=== PATIENT | female | born 1995 | race Caucasian/White ===

== ENCOUNTER → 2018-05-08 | Outpatient (CLI) | payer OTHER ==
--- NOTE | 2018-05-08 09:40 | Diagnostic Imaging Report ---
PROCEDURE:ABDOMINAL ULTRASOUND COMPARISON:None. INDICATIONS:abdominal pain, N\T\V FINDINGS: Liver: 14.2 cm in length in the right midclavicular line. Normal hepatic parenchymal echogenicity. No focal mass. Main portal vein: 1 cm in caliber. Hepatopedal flow. Gallbladder: Unremarkable in sonographic appearance without shadowing calculus, wall thickening, or pericholecystic fluid. Common Bile Duct: 0.2 cm in caliber. No echogenic filling defect. Sonographic Aguilera's sign: Reported as negative. Right kidney: 9.8 cm in length. No solid or cystic mass, echogenic calculi, or hydronephrosis. Normal parenchymal echogenicity. Left kidney: 10.4 cm in length. No solid or cystic mass, echogenic calculi, or hydronephrosis. Normal parenchymal echogenicity. Spleen: 8.7 cm in length. Uniform parenchymal echotexture. Pancreas: The visualized portions of the pancreas are normal. Inferior vena cava: Patent Aorta: Non-aneurysmal Ascites: None. CONCLUSION: Unremarkable abdominal ultrasound. Dictated by: Chivo Keenan M.D. on 05/08/2018 at 9:46 Electronically approved by: Chivo Keenan M.D. on 05/08/2018 at 9:46
== END ==
LOC: US 07:46
PROVIDERS: ATTEND Internal Medicine Gastroenterology
DX: R10.9 Unspecified abdominal pain (principal); R11.2 Nausea with vomiting, unspecified
CPT/HCPCS: 76700

== ENCOUNTER 2019-06-20 02:41 | Emergency (ER) | payer OTHER ==
[~2019-06-20] VITALS: Ht 162.6 cm; Wt 74.8 kg
--- OUTSIDE RECORDS SUMMARY | 2019-06-20 02:44 | XMS REPORT ---
Author Author [facility] Address Unknown Phone Unavailable Care Team Providers Care Catering Assistant Name Role Phone SAVI BUTLER Unavailable Unavailable Problems This patient has no known problems. Allergies, Adverse Reactions, Alerts This patient has no known allergies or adverse reactions. Medications This patient has no known medications. Results Test Description Test Time Test Comments Text Results Atomic Results Result Comments US ABDOMEN COMPLETE 2018-05-08 09:46:00 [place] [address] Patient Name: SPIKE ROMAN MR #: [id number] : 1995 Age/Sex: 23/F Req #: [id number] Adm Physician: Ordered by: SAVI BUTLER MD Report #: [id number] Location: US Room/Bed: Procedure: [id number] US/US ABDOMEN COMPLETE Exam Date: Exam Time: REPORT STATUS: Signed PROCEDURE: ABDOMINAL ULTRASOUND COMPARISON: None. INDICATIONS: abdominal pain, N T V FINDINGS: Liver: 14.2 cm in length in the right midclavicular line. Normal hepatic parenchymal echogenicity. No focal mass. Main portal vein: 1 cm in caliber. Hepatopedal flow. Gallbladder: Unremarkable in sonographic appearance without shadowing calculus, wall thickening, or pericholecystic fluid. Common Bile Duct: 0.2 cm in caliber. No echogenic filling defect. Sonographic Aguilera's sign: Reported as negative. Right kidney: 9.8 cm in length. No solid or cystic mass, echogenic calculi, or hydronephrosis. Normal parenchymal echogenicity. Left kidney: 10.4 cm in length. No solid or cystic mass, echogenic calculi, or hydronephrosis. Normal parenchymal echogenicity. Spleen: 8.7 cm in length. Uniform parenchymal echotexture. Pancreas: The visualized portions of the pancreas are normal. Inferior vena cava: Patent Aorta: Non- aneurysmal Ascites: None. CONCLUSION: Unremarkable abdominal ultrasound. Dictated by: Claudine Yang M.D. on 05/08/2018 at 9:46 Electronically approved by: Claudine Yang M.D. on 05/08/2018 at 9:46 Dictated By: CLAUDINE YANG MD 5 Transcribed By: JANELLE on 05/08/18945 COPY TO: SAVI BUTLER MD
[2019-06-20] MEDS ORDERED: TETANUS/DIPHTHERIA TOX ADULT 0.5 ML SYR ONE (02:58)
[2019-06-20] MEDS ORDERED: TETANUS/DIPHTHERIA TOX ADULT 0.5 ML SYR IM ONE (03:00)
[2019-06-20] MEDS ORDERED: TRAMADOL HCL 50 MG TAB PO ONE (03:00)
--- NOTE | 2019-06-20 03:20 | NUR ---
md ordered to irrigate lac with ns to remove possible debris in wound. wound irrigated with ns.
--- NOTE | 2019-06-20 03:40 | NUR ---
pt instructed on crutches. pt able to return demonstrate use of crutches.
--- NOTE | 2019-06-20 03:52 | Diagnostic Imaging Report ---
TOES LEFT MIN 2 VIEWS - 3 views HISTORY: Pain COMPARISON: None available. FINDINGS: See impression. IMPRESSION: Left great toe soft tissue defect and punctate foreign bodies without osseous abnormality. Signed by: Dr. Collin Lord MD on 06/20/2019 3:49 AM
--- NOTE | 2019-06-20 04:30 | NUR ---
states that wound free of foreign bodies. dressing applied. great toe wrapped c xerform gauz and 4x4 gauze and secured c coban. post op shoe applied. pt dc'd home at this time. rx and dc paperwork provided to patient.
--- NOTE | 2019-06-20 05:08 | Diagnostic Imaging Report ---
TOES LEFT MIN 2 VIEWS - 3 views HISTORY: Pain COMPARISON: Same day radiograph FINDINGS: Bones: No acute displaced fracture. Osseous alignment is within normal limits. Joints: The joint spaces are well-maintained. Soft tissues: Punctate foreign bodies. IMPRESSION: No acute radiographic abnormality. Punctate foreign bodies. Signed by: Dr. Collin Lord MD on 06/20/2019 5:05 AM
--- NOTE | 2019-06-20 05:10 | Diagnostic Imaging Report ---
TOES LEFT MIN 2 VIEWS - 3 views HISTORY: Pain COMPARISON: Same day radiographs FINDINGS: See impression. IMPRESSION: Nonvisualization of the previously noted punctate foreign bodies following removal of overlying gauze. Signed by: Dr. Collin Lord MD on 06/20/2019 5:07 AM
== END 2019-06-20 04:30 | disposition home or self-care (01) ==
LOC: ER 02:41
DX: S91.202A Unspecified open wound of left great toe with damage to nail, initial encounter (principal); W26.8XXA Contact with other sharp object(s), not elsewhere classified, initial encounter; Y93.01 Activity, walking, marching and hiking; Y92.008 Other place in unspecified non-institutional (private) residence as the place of occurrence of the external cause; K21.9 Gastro-esophageal reflux disease without esophagitis; K58.9 Irritable bowel syndrome, unspecified
CPT/HCPCS: 90471; 90714; 99283